=== PATIENT | female | born 1945 | race Caucasian/White ===

== ENCOUNTER 2019-04-18 12:24 | Inpatient (IN) | payer MEDICARE ==
--- NOTE | 2019-04-17 13:50 | Rehab Joint Replacement Pre-Op ---
Rehab Joint Replacement Pre-Op - Pre-Op Visit Reviewed Items Scheduled for Post Op Visit: Yes Scheduled Post Op Visit Date: 04/18/19 Maxime Hose/Garment Measurement TKR - Knee High: N/A Maxime Hose/Garment Measure THR - Thigh High: Yes (Ankle circumference: 7 1/2", Calf circumference: 14 1/2", Thigh circumference: 21", Leg length-thigh high: 32", Knee high: 20 1/2". According to these measurements the correct size stocking: Medium-Long) Exercise Reviewed: Yes Stair Climbing: Yes Cane/Walker/Crutch Training: Yes Vend Equipment - Cane or Walker and OT Kit: N/A List of Venders in the Area: Yes Shower Chair Transfers: Yes Car Transfers: Yes Bed Transfers: Yes Medical History Forms Issued: N/A Functional Scale Forms Issued: N/A Pre-Operative Intake Form - Scheduled Procedure Type of Surgical Procedure: Total Hip - Left - Patient Living Situation Current Living Situation: Spouse/Significant Other Current Housing Situation: Two Story Home Will patient be using both levels immediately after surgery: Yes (13-14 steps, railing on right. Bedroom, full bathroom second floor) - Entrance Detail Current Housing Entrance: Steps, Hand Rails - None Number of Steps: 2 - Bathroom Detail Bathroom Setup: Walk-In Shower (has hand held shower head) Toilet Setup: Standard Height Toilet, Grab Bars Not Present - Post-Op Home Assistance Pt has meals following surgery?: Yes Pt has transportation following surgery?: Yes - Equipment Detail Currently Own/Have Access To: Other (has toilet riser, and medical reception) - Work Status Current Work Status: Retired - Additional Detail Patient Returning Home In: Car Patient is scheduled for the following: Other (Not sure)
[~2019-04-18 12:24] MED LIST: CELECOXIB 100 MG CAPSULE PO ONE; FAMOTIDINE 20MG TABLET PO ONE; MECLIZINE 25 MG TABLET PO ONE; METOCLOPRAMIDE 10 MG TABLET PO ONE; VANCOMYCIN 1GM/200ML PREMIX 1 GM/200 ML PIGGYBACK IVPB ONE
[2019-04-18] MEDS ORDERED: RINGERS SOLUTION,LACTATED 1,000 ML IV ONE ×2 (13:10→14:53)
[2019-04-18] MEDS ORDERED: DEXAMETHASONE 4 MG/ML 1ML VIAL IVP ONE (14:00)
[2019-04-18] MEDS ORDERED: TRANEXAMIC ACID 1,000 MG/10 ML ML IV ONE (14:00)
[2019-04-18] MEDS ORDERED: PROPOFOL 10 MG/ML VIAL IV ONE (14:00)
[2019-04-18] MEDS ORDERED: LIDOCAINE 2% MDV (20MG/ML) 20ML VIAL IV ONE (14:00)
[2019-04-18] MEDS ORDERED: ROPIVACAINE HCL (NAROPIN) /PF 5MG/ML 20ML VIAL IV ONE (14:00)
[2019-04-18] MEDS ORDERED: MIDAZOLAM HCL 2MG/2ML VIAL IV ONE (14:00)
[2019-04-18] MEDS ORDERED: 0.9 % SODIUM CHLORIDE 10 ML VIAL IVP ONE (14:00)
[2019-04-18] MEDS ORDERED: BUPIVACAINE 0.5% W/EPI MPF 30 ML VIAL SQ ONE (14:54)
[2019-04-18 15:31] LABS: ABO GROUP O; ANTIBODY SCREEN NEGATIVE (NEGATIVE); RH TYPE POSITIVE
[2019-04-18] MEDS ORDERED: ZOLPIDEM TARTRATE 5 MG TABLET PO PRN (15:44)
[2019-04-18] MEDS ORDERED: HYDROMORPHONE HCL 2 MG/ML VIAL IM PRN (15:44)
[2019-04-18] MEDS ORDERED: KETOROLAC 30 MG/ML VIAL IVP PRN ×2 (15:44)
[2019-04-18] MEDS ORDERED: MAGNESIUM HYDROXIDE 30 ML UDC PO PRN (15:44)
[2019-04-18] MEDS ORDERED: TRAMADOL HCL 50 MG TABLET PO PRN (15:44)
[2019-04-18] MEDS ORDERED: ONDANSETRON HCL IV 4 MG/2 ML VIAL IVP PRN (15:44)
[2019-04-18] MEDS ORDERED: HYDROCODONE/APAP 10/325 TABLET PO PRN (15:44)
[2019-04-18] MEDS ORDERED: ACETAMINOPHEN 325 MG TAB PO PRN (15:44)
[2019-04-18] MEDS ORDERED: BISACODYL 10 MG SUPP RC PRN (15:44)
[2019-04-18] MEDS ORDERED: AL HYDROX/MAG HYDROX 30ML UD PO PRN (15:44)
[2019-04-18] MEDS ORDERED: NALOXONE 0.4 MG/1 ML VIAL IVP PRN (15:44)
[2019-04-18] MEDS ORDERED: DIPHENHYDRAMINE HCL 25 MG CAPSULE PO PRN (15:44)
[2019-04-18] MEDS ORDERED: ACETAMINOPHEN W/ CODEINE 300MG/60MG TABLET PO PRN ×2 (15:44)
[2019-04-18] MEDS ORDERED: FLUCONAZOLE 100 MG TABLET PO PRN (16:30)
[2019-04-18] MEDS: POTASSIUM CHLORIDE/D5-0.9%NACL 20 MEQ/1,000 ML BAG IV SCH (18:54)
[2019-04-18] MEDS: HYDROCODONE/APAP 10/325 TABLET PO PRN (18:57)
[2019-04-18] MEDS: DOCUSATE SODIUM 100 MG CAPSULE PO SCH (21:09)
[2019-04-19] MEDS: VANCOMYCIN 1GM/200ML PREMIX 1 GM/200 ML PIGGYBACK IVPB SCH ×2 (00:05→12:22)
[2019-04-19] MEDS: HYDROCODONE/APAP 10/325 TABLET PO PRN ×4 (00:05→14:17)
[2019-04-19] MEDS: POTASSIUM CHLORIDE/D5-0.9%NACL 20 MEQ/1,000 ML BAG IV SCH ×2 (01:26→07:00)
[2019-04-19 06:58] LABS: HEMATOCRIT 34.6 % (35.0-47.0); HEMOGLOBIN 11.4 gm/dl (11.6-16.0)
[2019-04-19 07:16] LABS: BLOOD UREA NITROGEN 14 mg/dL (8-23); CREATININE 0.7 mg/dL (0.5-0.9); EST GLOMERULAR FILTRATION RATE > 60 mL/min; GLUCOSE,RANDOM 130 mg/dL (74-109)
[2019-04-19] MEDS ORDERED: RIVAROXABAN 10 MG TABLET PO SCH (10:00)
[2019-04-19] MEDS ORDERED: FERROUS SULFATE 325 MG TAB PO SCH (10:00)
[2019-04-19] MEDS: AMLODIPINE BESYLATE 5MG TAB PO SCH ×2 (10:42→11:35)
[2019-04-19] MEDS: CHOLECALCIFEROL 1,000 UNIT TABLET PO SCH ×2 (10:42→11:35)
[2019-04-19] MEDS: DOCUSATE SODIUM 100 MG CAPSULE PO SCH (10:42)
[2019-04-19] MEDS: ASPIRIN 81 MG TABEC PO SCH ×2 (10:43→11:35)
--- NOTE | 2019-04-19 11:17 | Rehab Evaluation ---
Patient Information - Patient Information Diagnosis: Hip replacement revision left Ordered Treatment: PT Evaluate and Treat Status: Initial Evaluation Surgery: Yes (Hip replacement revision) Date of Surgery: 04/18/19 Past Medical/Surgical Hx: PAST MEDICAL/SURGICAL HISTORY Past Surgical History LTHA 2014 RTHA 2011 JENNIFER APPY BREAST BX BENIGN TONSILS C SCOPES PMH - Respiratory Hx Respiratory Disorders Yes Hx Bronchitis Yes: 50 YRS AGO PMH - Cardiovascular Hx Cardiovascular Disorders Yes Hx Hypertension Yes: WELL CONTROLLED WITH MEDS Exercise Tolerance Good PMH - Neuro Hx Neurological Disorders No PMH - GI Hx Gastrointestinal Disorders Yes PMH - Hx Genitourinary Disorders Yes Hx Urinary Tract Infection Yes: HX OF Comment: HAS VAG YEAST INFECTION BEING TREATED PMH - Endocrine Hx Endocrine Disorders No PMH - Musculoskeletal Hx Musculoskeletal Disorders Yes Hx Osteoporosis Yes: OSTEOPENIA PMH - Psych Hx Psychiatric Problems No PMH - Hematology/Oncology Hx Hematology/Oncology Yes Disorders Hx Blood Transfusion Reaction No Social History: Detail (Patient lives with in two-story house but surgeon says she will be able to do most of her normal activities when gets home right away and said walk for exercise to loosen up tissues and may not need home therapy. Patient does have railing to use on stairs and only two steps to actually get into house. Has [id number] and feels will be able to use normally. Standard height toilet with toilet riser as needed. Patient is retired and will not need to go back to a job.) Precautions: Call, Fall - Time With Patient Total Time Spent With Patient (Min): 30 Treatment Procedures: Detail (Patient seen in room, still recumbent in bed but has had meds and breakfast. Patient able to move supine to sit pivoting on buttocks well and worked on some exercises for leg initially to make sure loosened up and ready to move. Scooted to edge of bed then sit to stand with CGA and FWW then ambulated in mueller about 50 feet to stairs walking with very good technique and no limp. Patient able to ambulate down three steps with folded walker and rail then back up with good techniques WBAT. Ambulated further in mueller for about 200 feet distance with very good technique. Back in room, left patient seated in chair for OT to work with patient. Reviewed hip precautions but doctor said she does not have to rigidly observe them because of the method of surgery for the revision. He said he made sure leg very stable during surgery.) Subjective Information - Subjective Information Per Patient (Pain levels about 4-5/10 this am but slept pretty well and ready to get moving.) Objective Data - Pain Pain Present: Yes Pain Scale Used: Numeric (1 - 10) (4-5/10) - Mental Status Patient Orientation: Oriented x3 - Visual Perception Appears within normal limits for therapeutic activities - ROM Within normal limits (except left hip a little restricted for flexion, abduction and ER yet. Observed hip precautions today when checking.) - Strength/Tone Within normal limits (except left hip 3/5 at this time.) - Coordination Appears within normal limits for therapeutic activities (Able to ambulate with good technique and no limp.) - Bed Mobility Independent - Transfers Independent - Balance Balance Sitting: Good Balance Standing: Good - Sensation Intact - Gait Detail (Able to ambulate 200 feet with FWW in mueller, negotiate stairs (three) down and up with some fatigue.) - Special Tests No Therapy Assessment - Therapy Assessment Detail (Patient doing extremely well and has already passed all skills to be discharged from PT. She is able to ambulate with FWW safely and negotiate stairs safely with rail and walker or cane. Also independent with bed mobility and transfers.) Patient Education - Patient Education Teaching Topic: Equipment Use, Exercise/Activity Response: Return Demonstration Teaching Method: Discussion, Demonstration Teaching Recipient: Patient Barriers To Learning: None Problem List - Problem List Physical Therapy Problem List: Detail (Initially decreased mobility and gait but patient doing extremely well this am and ready for discharge from PT.) Goals - Goals Physical Therapy Goals: Independent with mobility bed and transfers, independent with household distances for gait with appropriate assistive device and stairs as needed with appropriate devices and rails. Prognosis - Prognosis Good (Patient has already met goals for PT and able to be discharged.) Plan - Plan Physical Therapy Plan: Patient seen this am for goals of independent mobility, transfers and gait on flat surfaces and stairs.
--- NOTE | 2019-04-19 11:59 | Rehab Evaluation ---
Patient Information - Patient Information Diagnosis: Failed left THR Ordered Treatment: OT Evaluate and Treat Status: Initial Evaluation Surgery: Yes (Hip replacement revision) Date of Surgery: 04/18/19 Past Medical/Surgical Hx: PAST MEDICAL/SURGICAL HISTORY Past Surgical History LTHA 2014 RTHA 2011 JENNIFER APPY BREAST BX BENIGN TONSILS C SCOPES PMH - Respiratory Hx Respiratory Disorders Yes Hx Bronchitis Yes: 50 YRS AGO PMH - Cardiovascular Hx Cardiovascular Disorders Yes Hx Hypertension Yes: WELL CONTROLLED WITH MEDS Exercise Tolerance Good PMH - Neuro Hx Neurological Disorders No PMH - GI Hx Gastrointestinal Disorders Yes PMH - Hx Genitourinary Disorders Yes Hx Urinary Tract Infection Yes: HX OF Comment: HAS VAG YEAST INFECTION BEING TREATED PMH - Endocrine Hx Endocrine Disorders No PMH - Musculoskeletal Hx Musculoskeletal Disorders Yes Hx Osteoporosis Yes: OSTEOPENIA PMH - Psych Hx Psychiatric Problems No PMH - Hematology/Oncology Hx Hematology/Oncology Yes Disorders Hx Blood Transfusion Reaction No Social History: Detail (Patient lives with in two-story house with basement, surgeon says she will be able to do most of her normal activities when gets home right away and said walk for exercise to loosen up tissues and may not need home therapy. Pt reports her bedroom and bathroom are on the second floor. Her bathroom has a walk in shower, no seat, no grab bars and a standard height toilet with a riser but no grab bar. She has 2 steps without a handrailing at the entrance of her home. She is responsible for meal prep and home mgmt, spouse will be available to assist with all IADLs. Pt has a 2 wheeled walker and child care assistant.) Precautions: [place], Fall, Other (Per Dr. Booker pt has modified total hip precautions, she is able to bend over at the hip but should not cross legs in an extreme manner.) - Time With Patient Total Time Spent With Patient (Min): 40 Treatment Procedures: Detail (OT eval low complexity) Subjective Information - Subjective Information Per Patient Objective Data - Pain Pain Present: No (Pt reports no pain.) - Mental Status Patient Orientation: Oriented x3 - Visual Perception Appears within normal limits for therapeutic activities - ROM Within normal limits (Dg UE AROM WNL) - Strength/Tone Within normal limits (Dg UE strength WNL) - Coordination Appears within normal limits for therapeutic activities - Transfers Independent (Ind with sit to stand from EOB and chair heights.) - Balance Balance Sitting: Good Balance Standing: Good - Sensation Intact - Gait Detail (Pt ambulating in room with 2 wheeled walker Indly.) - ADL's/IADL's Detail (Pt able to state modified total hip precautions. She was able to doff slipper socks and don pants and slip on shoes Indly. Reviewed kitchen and shower safety and modifications, pt verballized understanding.) Therapy Assessment - Therapy Assessment Detail (Pt is safe and Ind with modified LE dressing techniques.) Problem List - Problem List Physical Therapy Problem List: Detail (Initially decreased mobility and gait but patient doing extremely well this am and ready for discharge from PT.) Occupational Therapy Problem List: Detail (No current IP OT problems identified.) Goals - Goals Physical Therapy Goals: Independent with mobility bed and transfers, independent with household distances for gait with appropriate assistive device and stairs as needed with appropriate devices and rails. Occupational Therapy Goals: No current IP OT goals identified. Prognosis - Prognosis Good Plan - Plan Physical Therapy Plan: Patient seen this am for goals of independent mobility, transfers and gait on flat surfaces and stairs. Occupational Therapy Plan: No further IP OT recommended. Thank you for this referral.
--- NOTE | 2019-04-20 15:40 | Operative Note ---
DATE OF SURGERY: 04/18/2019 PREOPERATIVE DIAGNOSIS: Recurrent dislocation left total hip. 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 OPERATION: Revision of left total hip arthroplasty acetabular component. SURGEON: Chai Booker M.D. ANESTHESIA: Spinal. PREPARATION: Chloraprep. INDIVIDUAL CONSIDERATIONS: None. PROCEDURE: The patient was taken to the operating room and placed supine on the operating room table. She had a successful induction of a spinal anesthetic. She was then placed on her side, left side up and her left hip and leg were prepped and draped in the usual fashion. The patient had a direct posterior approach to the hip. Sharp dissection carried down through the skin and subcutaneous tissue. Small veins were coagulated with the Bovie. The tensor gluteal fascia was opened along the entire length of the incision and deep retractors were placed. I could actually palpate the femoral neck on the implant. I went ahead and dissected right at the base of that and then opened the capsule. There was fluid within the capsule with good viscosity. A posterior capsulectomy was performed. There was obvious damage to the acetabular liner posteriorly. There was synovitis consistent with liner wear. The hip was dislocated posteriorly. I went ahead and tapped off the femoral head with a mallet and a tamp and then did a rim capsulectomy and then went ahead and eased out the liner. There was clear liner wear posteriorly with loss of the posterior lip. After doing a complete rim capsulectomy and taking osteotome to remove osteophytes that were covering, I was then able after irrigation to re-implant a liner for a 54 socket, it was a 35 degree 32 mm diameter with the offset basically posterior inferior. This gave an excellent stable acetabular construct. She originally had a +0 but that was too short, with a lot of shuck and instability. I went ahead and made it a +8, with a +8 I had absolute stability. I had full anterior stability, full posterior stability with flexion and internal rotation at 90 degrees. After irrigation and drying the Loza Taper, a +8 [place] head was impacted on it, the hip was reduced with absolute again stability. The sciatica nerve was palpated and found to be normal. It was in the scar posteriorly, but I did not dare to try to dissect it out at this point. Hemostasis was obtained with a Bovie. I went ahead and placed 30 mL of saline mixed with 1 gram of tranexamic acid deep to the fascia. The patch was then closed with running #2 Quill, the subq was closed in multiple layers of 0 Quill, the skin was closed with mariah. I did infiltrate the skin and the subcutaneous tissue with 30 mL of 0.5% Marcaine with epinephrine prior to closure, and a sterile, bulky, compressive, GABRIELA-type dressing was applied. The patient tolerated the procedure well. The needle and sponge counts were correct. Estimated blood loss was about 400 mL. We will check a hemoglobin in the morning. There were no complications. DONNIE
--- NOTE | 2019-04-20 15:40 | Discharge Summary ---
DATE OF ADMISSION: 04/18/2019 DATE OF DISCHARGE: 04/19/2019 HISTORY OF PRESENT ILLNESS: The patient is a 73-year-old female who presents with recurrent dislocation of her left hip secondary to a liner failure. She is admitted after revision total hip arthroplasty. At the time of surgery her liner, it did go on to failure and also she was found to have the fact that the implant length was a little short. She had a change of the head and a liner replacement and postoperatively she did extremely well. She was almost independent the night of surgery. Her discharge hemoglobin was 11.4. PLAN: Discharge her to home in the care of her family, home PT visiting nurse has been arranged. She will be given Lynn for pain and Xarelto, followed by aspirin for DVT prophylaxis. The visiting nurse to remove the sutures in 2 weeks. She will follow up in my office in 4 weeks. FINAL DIAGNOSES: 1. 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 2. Operative blood loss anemia. OPERATIONS AND PROCEDURES: Revision of left total hip arthroplasty. DISCHARGE CONDITION: Good. DONNIE
== END 2019-04-19 14:45 | disposition home health service (06) | DRG 468 ==
LOC: MEDSURG 12:24
PROVIDERS: ADMIT Orthopaedic Surgery; ATTEND Orthopaedic Surgery
PROC: 0SPB0JZ Removal of Synthetic Substitute from Left Hip Joint, Open Approach (ICD-10-PCS; 2019-04-18)
PROC: 0SRB06A Replacement of Left Hip Joint with Oxidized Zirconium on Polyethylene Synthetic Substitute, Uncemented, Open Approach (ICD-10-PCS; principal; 2019-04-18 14:30)
DX: T84.021A Dislocation of internal left hip prosthesis, initial encounter (principal); M24.452 Recurrent dislocation, left hip; I10 Essential (primary) hypertension
CPT/HCPCS: 76942; 80048; 85014; 85018; 86850; 86900; 86901; C1776; J3370; J3480; J7120